=== PATIENT | female | born 1955 | race African-American/Black ===

== ENCOUNTER → 2016-03-21 | Day surgery (SDC) | payer OTHER ==
[2016-03-09 15:18] VITALS: BP 113/73
[~2016-03-21] VITALS: Ht 154.9 cm; Wt 63.7 kg
[~2016-03-21] MED LIST: AMLO5TAB2 PO; ASPI-482 PO; ATOR40TA59 PO; CELECOXIB 200 MG CAPSULE PO PRN; CHLO25TA PO; CITA20TA5 PO; DEXAMETHASONE SOD PHOS 20 MG/5 ML VIAL. ONE; FENTANYL PF 100 MCG/2 ML VIAL. IV PRN; FENTANYL PF 100 MCG/2 ML VIAL. ONE; HYDROCODONE/APAP 7.5/325MG TABLET. PO PRN; HYDROMORPHONE 2 MG/ML VIAL. IV PRN; IBUP-1060 PO; IV RINGERS,LACTATED 1000ML 1,000 ML IV SCH; LIDOCAINE 1% 1 ML SYRINGE. ID PRN; LIDOCAINE 2% 100 MG/5 ML DISP.SYRIN. ONE; LURA40TA PO; MIDAZOLAM HCL 2 MG/2 ML VIAL. ONE; MORPHINE SULFATE 2 MG/ML DISP.SYRIN. IV PRN; MORPHINE SULFATE 5 MG, KETOROLAC TROMETHAMINE 30 MG, ROPIVacaine 0.5% PF 60 ML, EPINEPH... INT ART ONE; ONDANSETRON PF 4 MG/2 ML VIAL. IV PRN; ONDANSETRON PF 4 MG/2 ML VIAL. ONE; PROAIR HFA8.5 GM INH; PROCHLORPERAZINE 10 MG/2 ML VIAL. IV PRN; PROPOFOL 0 ML IV ONE; ROCURONIUM 50 MG/5 ML VIAL. ONE; TIOT18CA IH; TRANEXAMIC ACID 1,000 MG in IV NS 50ML -- 1ST BAG INJ ONE; TRANEXAMIC ACID 1,000 MG in IV NS 50ML -- 2ND BAG INJ ONE; VANCOMYCIN 1GM IVPB FOR OMNI 250 ML IV PRN
[2016-03-21 12:44] LABS: BILIRUBIN,URINE NEGATIVE (NEG); GLUCOSE,URINE NEGATIVE (NEG); NITRITE,URINE NEGATIVE (NEG); PROTEIN,URINE NEGATIVE (NEG-TRACE); UROBILINOGEN,URINE 0.2 mg/dL (0.2 mg/dL)
[2016-03-21 12:53] LABS: CALCIUM 9.3 mg/dL (8.5-10.1); CREATININE 0.7 mg/dL (0.6-1.0); GFR 103.3
[2016-03-21 12:56] LABS: POTASSIUM 2.8 mmol/L (3.5-5.1)
[2016-03-21 12:58] LABS: BACTERIA,URINE FEW /HPF (0-FEW); SQUAMOUS EPITHELIAL CELL,UR MOD /LPF; TRICHOMONAS,URINE PRESENT
[2016-03-21 13:34] LABS: BASO # 0.1 x10^3/uL (0.0-0.2); BASO % 2 % (0-3); EOS % 2 % (0-3); HEMATOCRIT 34.8 % (36.0-47.0); HEMOGLOBIN 11.4 g/dL (12.0-15.5); LYMPH # 1.8 x10^3/uL (1.0-4.8); LYMPH % 26 % (24-48); MEAN CORPUSCULAR HEMOGLOBIN 30 pg (25-35); MEAN CORPUSCULAR HGB CONC 33 g/dL (31-37); MEAN CORPUSCULAR VOLUME 90 fL (79-100); MONO % 11 % (0-9); NEUT % 59 % (31-73); PLATELET COUNT 203 x10^3/uL (140-400); RED BLOOD COUNT 3.88 x10^6/uL (3.50-5.40); RED CELL DISTRIBUTION WIDTH 14.7 % (11.5-14.5); WHITE BLOOD COUNT 7.1 x10^3/uL (4.0-11.0)
== END | disposition still patient (30) ==
LOC: SURG 12:00 → UNDOADMIN 12:00 → OPSVCIP 12:00 → EDSTATUS 04-05 14:00
PROVIDERS: ATTEND Orthopaedic Surgery
DX: S43.084A Other dislocation of right shoulder joint, initial encounter (principal)
CPT/HCPCS: 36415; 80048; 81001; 85027; 85651; 87086; J3010; J0171; J1100; J1885; J2250; J2270; J2405; J2704; J2795; J7120

== ENCOUNTER → 2017-01-02 | Outpatient (CLI) | payer OTHER ==
[2016-03-09 15:18] VITALS: BP 113/73
[~2017-01-02] MED LIST changes: -CELECOXIB 200 MG CAPSULE PO PRN; -DEXAMETHASONE SOD PHOS 20 MG/5 ML VIAL. ONE; -FENTANYL PF 100 MCG/2 ML VIAL. IV PRN; -FENTANYL PF 100 MCG/2 ML VIAL. ONE; -HYDROCODONE/APAP 7.5/325MG TABLET. PO PRN; -HYDROMORPHONE 2 MG/ML VIAL. IV PRN; -IV RINGERS,LACTATED 1000ML 1,000 ML IV SCH; -LIDOCAINE 1% 1 ML SYRINGE. ID PRN; -LIDOCAINE 2% 100 MG/5 ML DISP.SYRIN. ONE; -MIDAZOLAM HCL 2 MG/2 ML VIAL. ONE; -MORPHINE SULFATE 2 MG/ML DISP.SYRIN. IV PRN; -MORPHINE SULFATE 5 MG, KETOROLAC TROMETHAMINE 30 MG, ROPIVacaine 0.5% PF 60 ML, EPINEPH... INT ART ONE; -ONDANSETRON PF 4 MG/2 ML VIAL. IV PRN; -ONDANSETRON PF 4 MG/2 ML VIAL. ONE; -PROCHLORPERAZINE 10 MG/2 ML VIAL. IV PRN; -PROPOFOL 0 ML IV ONE; -ROCURONIUM 50 MG/5 ML VIAL. ONE; -TRANEXAMIC ACID 1,000 MG in IV NS 50ML -- 1ST BAG INJ ONE; -TRANEXAMIC ACID 1,000 MG in IV NS 50ML -- 2ND BAG INJ ONE; -VANCOMYCIN 1GM IVPB FOR OMNI 250 ML IV PRN
--- NOTE | 2017-01-02 11:51 | RAD ---
DATE: 01/02/2017 EXAM: DIGITAL SCREEN BILAT W/CAD HISTORY: Routine screening COMPARISON: 2016 mammogram This study was interpreted with the benefit of Computerized Aided Detection (CAD). FINDINGS: Breast Density: SCATTERED The breast parenchyma shows scattered fibroglandular densities. Breast parenchyma level B. The skin and nipples are within normal limits. Benign bilateral calcifications. No suspicious calcifications, spiculated masses or areas of architectural distortion. IMPRESSION: No mammographic evidence of malignancy. Stable mammogram. BI-RADS CATEGORY: 2 BENIGN FINDING(S) RECOMMENDED FOLLOW-UP: 12M 12 MONTH FOLLOW-UP PQRS compliance statement: Patient information was entered into a reminder system with a target due date 01/02/2018 for the next mammogram. Mammography is a sensitive method for finding small breast cancers, but it does not detect them all and is not a substitute for careful clinical examination. A negative mammogram does not negate a clinically suspicious finding and should not result in delay in biopsying a clinically suspicious abnormality. "Our facility is accredited by the [employer] Mammography Program."
== END | disposition home or self-care (01) ==
LOC: MAMMO 10:16
PROVIDERS: ATTEND Family Medicine
DX: Z12.31 Encounter for screening mammogram for malignant neoplasm of breast (principal)
CPT/HCPCS: G0202; 77067

== ENCOUNTER → 2018-02-20 | Outpatient (CLI) | payer MEDICAID, OTHER ==
[2016-03-09 15:18] VITALS: BP 113/73
[~2018-02-20] MED LIST changes: +ALBU2.5V8 INH; +AMLO5TAB10 PO; -AMLO5TAB2 PO; -CHLO25TA PO; +CHLO25TA10 PO; -CITA20TA5 PO; +CITA20TA6 PO; -PROAIR HFA8.5 GM INH
--- NOTE | 2018-02-20 18:00 | RAD ---
EXAM: US extremity nonvascular, left posterior knee DATE: 02/20/2018 4:15 PM COMPARISON: No prior INDICATION: Left POST KNEE/CALF PAIN/SWELLING TECHNIQUE: Longitudinal and transverse imaging with intermittent Doppler sampling completed with attention to severe left knee FINDINGS/ IMPRESSION: Within the popliteal fossa is a 3.7 x 1.1 x 2 cm cystic structure with debris layering dependently. Given the location, this may represent Willis's cyst. In addition a heterogeneous hypoechoic structure is seen at the posterior aspect of the calf tracking inferiorly which may represent a complex cyst. No definite associated hyperemia. This is located predominantly in the subcutaneous tissues. If necessary this can be further assessed by MRI. Electronically signed by: Jason Whitfield MD (02/20/2018 5:55 PM) [id number]
== END | disposition home or self-care (01) ==
LOC: US 16:09
PROVIDERS: ATTEND Family Medicine
DX: Z13.820 Encounter for screening for osteoporosis (principal); R22.42 Localized swelling, mass and lump, left lower limb
CPT/HCPCS: 76881

== ENCOUNTER 2018-03-02 10:53 | Emergency (ER) | payer MEDICAID ==
[~2018-03-02] VITALS: Ht 154.9 cm; Wt 61.2 kg
[~2018-03-02 10:53] MED LIST changes: -AMLO5TAB10 PO; +AMLO5TAB7 PO
--- NOTE | 2018-03-02 13:02 | RAD ---
Left lower extremity venous doppler ultrasound History: Left leg pain and swelling Comparison: None Findings: Multiple grayscale, color, and duplex spectral analysis sonographic images were acquired of the left lower extremity veins to evaluate for the presence of DVT. There is normal phasicity. Normal compression, color-flow, and augmentation is demonstrated from the left common femoral to the popliteal veins. There is normal color flow of the proximal greater saphenous and profunda femoris veins. There is normal color flow of segments of the calf veins. There is avascular, left popliteal fossa hypoechoic fluid collection about 3 x 1 x 2.5 cm in size. Impression: 1. There is no evidence of deep venous thrombosis from the left common femoral to popliteal veins. 2. There is left popliteal fossa fluid collection. Electronically signed by: Anatoliy Boogie MD (03/02/2018 12:58 PM) [id number]
[2018-03-02 13:30] VITALS: BP 127/74
--- NOTE | 2018-03-02 14:25 | PHYS DOC ---
Adult General Chief Complaint Chief Complaint: LOWER EXT PAIN HPI HPI Patient is a 62 year old female with a history of smoking, COPD, who presents today complaining of left lower extremity swelling that has been going on for 8 days. Patient states she had a ultrasound of the left lower extremity done a couple days ago and her own PCP sent her to the ED today a ultrasound to rule out DVT. Patient denies any pain to the left lower extremity. Denies any injury. Denies any use of hormones steroids, denies any recent hospitalization, denies any personal family history of DVTs. Denies any recent long air or car travel Review of Systems Review of Systems Constitutional: Denies fever or chills [] Eyes: Denies change in visual acuity, redness, or eye pain [] HENT: Denies nasal congestion or sore throat [] Respiratory: Denies cough or shortness of breath [] Cardiovascular: No additional information not addressed in HPI [] GI: Denies abdominal pain, nausea, vomiting, bloody stools or diarrhea [] : Denies dysuria or hematuria [] Musculoskeletal: Reports left lower extremity swelling for 8 days. Integument: Denies rash or skin lesions [] Neurologic: Denies headache, focal weakness or sensory changes [] All other systems were reviewed and found to be within normal limits, except as documented in this note. Allergies Allergies Allergies Coded Allergies Type Severity Reaction Last Updated Verified iodine Allergy Severe Swelling 03/09/16 Yes lisinopril Allergy Severe 03/09/16 Yes shrimp Allergy Severe Itching 03/09/16 Yes I S O L A T I O N *CONTACT* Allergy Unknown 03/10/16 Yes Physical Exam Physical Exam Constitutional: Well developed, well nourished, no acute distress, non-toxic appearance. [] HENT: Normocephalic, atraumatic, bilateral external ears normal, oropharynx moist, no oral exudates, nose normal. [] Eyes: PERRLA, EOMI, conjunctiva normal, no discharge. [] Neck: Normal range of motion, no tenderness, supple, no stridor. [] Cardiovascular:Heart rate regular rhythm, no murmur [] Lungs & Thorax: Bilateral breath sounds clear to auscultation [] Abdomen: Bowel sounds normal, soft, no tenderness, no masses, no pulsatile masses. [] Skin: Warm, dry, no erythema, no rash. [] Back: No tenderness, no CVA tenderness. [] Extremities: Left calf with mild swelling, no warmth, no erythema to the LLE. No tenderness to the calf. Negative Homans sign to the left lower extremity. Full range of motion to the left lower extremity. +2 left pedal pulse. Cap refill less than 2 seconds the left toes. Neurologic: Alert and oriented X 3, normal motor function, normal sensory function, no focal deficits noted. [] Psychologic: Affect normal, judgement normal, mood normal. [] EKG EKG [] Radiology/Procedures Radiology/Procedures []PROCEDURE: VENOUS LOWER EXTREMITY LEFT Left lower extremity venous doppler ultrasound History: Left leg pain and swelling Comparison: None Findings: Multiple grayscale, color, and duplex spectral analysis sonographic images were acquired of the left lower extremity veins to evaluate for the presence of DVT. There is normal phasicity. Normal compression, color-flow, and augmentation is demonstrated from the left common femoral to the popliteal veins. There is normal color flow of the proximal greater saphenous and profunda femoris veins. There is normal color flow of segments of the calf veins. There is avascular, left popliteal fossa hypoechoic fluid collection about 3 x 1 x 2.5 cm in size. Impression: 1. There is no evidence of deep venous thrombosis from the left common femoral to popliteal veins. 2. There is left popliteal fossa fluid collection. Electronically signed by: Silvia Britton MD (03/02/2018 12:58 PM) [id number] DICTATED and SIGNED BY: SILVIA BRITTON MD DATE: 03/02/18 1256 Course & Med Decision Making Course & Med Decision Making Pertinent Labs and Imaging studies reviewed. (See chart for details) This is a 62-year-old female patient presenting to the ED today complaining of left lower extremity swelling for the last 8 days. Patient was sent to the ED to rule out DVT. Venous Doppler of the left lower extremity was negative for DVT. Noted for popliteal cyst. Patient was discharged with instructions to follow-up with the PCP orthopedic doctor for this cyst. She is a smoker, she was encouraged to consider smoking cessation. Dragon Disclaimer Dragon Disclaimer This electronic medical record was generated, in whole or in part, using a voice recognition dictation system. Departure Departure Impression: Primary Impression: Popliteal cyst Additional Impression: Smoking addiction Disposition: HOME, SELF-CARE Condition: STABLE Referrals: ZUNILDA DICKSON MD (PCP) follow up next week ESTHER KLINE II, MD follow up next week Patient Instructions: Willis's Cyst Additional Instructions: You had a venous doppler of the left lower extremity, you are negative for blood clot. You have a cyst on your left lower extremity. Please continue following up with the primary care doctor as well as the provided orthopedic doctor. Problem Qualifiers Primary Impression: Popliteal cyst Laterality: left Qualified Codes: M71.22 - Synovial cyst of popliteal space [Willis], left knee LIN GAYLE [employer]ICENSING ENGINEER Mar 02, 2018 14:25
== END 2018-03-02 14:35 | disposition home or self-care (01) ==
LOC: ER 10:53
DX: M71.22 Synovial cyst of popliteal space [Baker], left knee (principal); F17.200 Nicotine dependence, unspecified, uncomplicated; J44.9 Chronic obstructive pulmonary disease, unspecified; Z91.041 Radiographic dye allergy status; Z91.013 Allergy to seafood; Z88.6 Allergy status to analgesic agent
CPT/HCPCS: 93971; 99284-25